=== PATIENT | male | born 1940 | race Caucasian/White ===

== ENCOUNTER 2016-06-21 13:45 | Emergency (ER) | payer OTHER ==
[~2016-06-21] VITALS: Wt 88.0 kg
[~2016-06-21 13:45] MED LIST: ASPI-664 PO; LISI-313 PO; MTF1000T PO
[2016-06-21] MEDS ORDERED: ALBUTEROL/IPRATROPIUM (NEB) 3 ML AMP HHN STA (14:36)
[2016-06-21] MEDS ORDERED: DEXAMETHASONE 10 MG/ML 1 ML INJ IM ONE (15:00)
--- NOTE | 2016-06-21 15:12 | ERD ---
ER Documentation Chief Complaint Date/Time DATE: 06/21/16 TIME: 15:06 Chief Complaint SORE THROAT AND FEELING DRY AND NOT ABLE SWALLOW. MILD SOB HPI This patient is a 75-year-old male with history of recent fistula repair 4 days ago with anesthesia who reports difficulty breathing and dry cough which began 2 days ago. The patient believes his symptoms are due to the anesthesia effects. Patient denies any history of asthma however he has used an inhaler in the past with relief of symptoms. Patient denies any fevers, chills, nausea , vomiting, diarrhea, urinary symptoms, or other symptoms. ROS All systems reviewed and are negative except as per history of present illness. Medications Home Meds Active Scripts Benzonatate* (Tessalon Perle*) 100 Mg Capsule, 100 MG PO Q8H Y for COUGH, #20 CAP Prov:LAURENT WHITNEY PA-C 06/21/16 Albuterol Sulfate* (Ventolin HFA*) 18 Gm Hfa.aer.ad, 2 PUFF INHALATION Q4H, #1 INHALER Prov:LAURENT WHITNEY PA-C 06/21/16 Azithromycin* (Zithromax*) 250 Mg Tablet, 250 MG PO .ZPACK DIRECTED, #6 TAB TAKE 500 MG (2 TABS) THE FIRST DAY THEN 250 MG (1 TAB) DAYS 2-5 Prov:LAURENT WHITNEY PA-C 06/21/16 Reported Medications Aspirin* (Aspirin* EC) 81 Mg Tablet.dr, 81 MG PO DAILY, TAB 08/29/14 Metformin* (Glucophage*) 1,000 Mg Tablet, 1000 MG PO DAILY 02/16/13 Lisinopril* (Lisinopril*) 5 Mg Tablet, 5 MG PO DAILY 11/08/12 Allergies Allergies: Coded Allergies: Penicillins (Verified Allergy, Intermediate, ITCHINESS, 08/29/14) PMhx/Soc History of Surgery: Yes (LEFT EYE CATRACT ,COUPLE COLONOSCOPY ) Anesthesia Reaction: No Hx Neurological Disorder: No Hx Respiratory Disorders: Yes (ASTHMA) Hx Cardiac Disorders: Yes (HTN) Hx Psychiatric Problems: No Hx Miscellaneous Medical Probl: No Hx Alcohol Use: Yes (OCCASIONAL) Hx Substance Use: No Hx Tobacco Use: No Smoking Status: Never smoker FmHx Noncontributory for chief complaint Physical Exam Vitals Vital Signs Date Time Temp Pulse Resp B/P Pulse Ox O2 Delivery O2 Flow Rate FiO2 06/21/16 16:25 98.2 98 Room Air 06/21/16 15:24 80 20 98 21 06/21/16 13:55 99.2 80 20 126/90 98 Physical Exam INITIAL VITAL SIGNS: Reviewed by me. GENERAL: Alert and interactive. No acute distress. HEAD: Head is normocephalic and atraumatic. EYES: EOMI. No scleral icterus. No conjunctival injection. ENT: Moist mucosa. NECK: Supple. Full range of motion. RESPIRATORY: Shallow inspiratory effort. The patient is actively coughing on exam.. Clear breath sounds bilaterally. No wheezing, rales, or rhonchi. CV: Regular rate and rhythm. Normal S1 S2. No S3 or S4. No murmurs. ABDOMEN: Soft, non-distended, non-tender. No guarding. No rebound. No masses. EXTREMITIES: No deformity. SKIN: Warm and dry. NEUROLOGIC: Alert and oriented x 4. Speech is normal. Moves all extremities equally. No motor or sensory deficits noted. Results 24 hrs Current Medications Medications (Trade) Dose Ordered Sig/Tanisha Route PRN Reason Start Time Stop Time Status Last Admin Dose Admin Albuterol/ Ipratropium (Duoneb) 3 ml ONCE STAT HHN 06/21/16 14:36 06/21/16 14:38 DC 06/21/16 15:22 Dexamethasone (Decadron) 10 mg ONCE ONCE IM 06/21/16 15:00 06/21/16 15:01 DC 06/21/16 15:00 Procedures/[facility] EMERGENCY DEPARTMENT COURSE / MEDICAL DECISION MAKING: This is a 75-year-old male who comes to the emergency room secondary to complaints of nonproductive cough and shortness of breath. On physical examination the patient's O2 saturation is 98% on room air and there are no signs of respiratory distress. On auscultation there are no wheezes, rales, or rhonchi. However, the patient is actively coughing as shallow inspiratory effort. The patient was given IM Decadron and albuterol/ipratropium breathing treatment in the department. On re-evaluation, the patient was feeling improved. Radiology: 1 view chest x-ray interpreted by radiologist: PROCEDURE: XR Chest. CLINICAL INDICATION: Cough TECHNIQUE: Chest AP portable COMPARISON: 04/29/2011 FINDINGS: There are surgical clips overlying the left chest. The mediastinal structures are unremarkable. There is calcification of the thoracic aorta (consistent with atherosclerosis). The heart is normal in size and configuration. The pulmonary vascularity is normal. The lung flynn are unremarkable. No consolidation is identified. The pleural spaces are unremarkable. There are senescent changes of the axial skeleton. IMPRESSION: Calcification of the thoracic aorta (consistent with atherosclerosis). No evidence for active cardiopulmonary disease. EKG: Interpreted by ED physician Rate/Rhythm: Normal sinus rhythm with a rate of [address] bpm. QRS, ST, T-waves: [No changes consistent w/ acute ischemia] Impression: [No evidence of ischemia or arrhythmia] The primary diagnosis is upper respiratory infection. Secondary diagnosis is cough. I have low suspicion for pulmonary embolism, bronchitis, pneumonia, pneumothorax , or other emergencies at this time. Discharge: I have discussed the lab results and diagnostic findings with the patient and answered any questions or concerns. The patient was discharged with a prescription for a Z-Ihsan, tessalon perles, and an albuterol inhaler. The patient was advised to followup with their PMD in 1-2 days and to return to the Emergency Department if there are any new or worsening symptoms. The patient understood and agreed with the diagnosis, treatment and plan. The patient is stable for discharge at this time. Departure Diagnosis: Primary Impression: Shortness of breath Additional Impression: Cough Condition: Stable Additional Instructions: No mas mejor en 2-3 santos, regresar. Mas peor en 24 horas, regresear rapidamente. Ir a doctor primario in 5-7 santos. Usar instrucciones cuando desiree medicamento. LAURENT WHITNEY PA-C Jun 21, 2016 15:12
--- NOTE | 2016-06-21 15:14 | RADRPT ---
PROCEDURE: XR Chest. CLINICAL INDICATION: Cough TECHNIQUE: Chest AP portable COMPARISON: 04/29/2011 FINDINGS: There are surgical clips overlying the left chest. The mediastinal structures are unremarkable. There is calcification of the thoracic aorta (consiste nt with atherosclerosis). The heart is normal in size and configuration. The pulmonary vascularity is normal. The lung flynn are unremarkable. No consolidation is identified. The pleural spaces are unremarkable. There are senescent changes of the axial skeleton. IMPRESSION: Calcification of the thoracic aorta (consistent with atherosclerosis). No evidence for active cardiopulmonary disease. RPTAT: HGDB .Honorio Menjivar MD, Date Time Electronically viewed and signed by .Honorio Menjivar MD, on 06/21/2016 15:13 .B/
[2016-06-21] MEDS ORDERED: AZIT250T94 PO (15:55)
[2016-06-21] MEDS ORDERED: ALBU18HF INHALATION (15:56)
[2016-06-21] MEDS ORDERED: BENZ100C70 PO (15:57)
[2016-06-21 16:25] VITALS: TEMP 98.2
== END 2016-06-21 16:26 | disposition home or self-care (01) ==
LOC: FTE 13:45
DX: R06.02 Shortness of breath (principal); I10 Essential (primary) hypertension; J45.901 Unspecified asthma with (acute) exacerbation; E11.9 Type 2 diabetes mellitus without complications; Z79.82 Long term (current) use of aspirin; Z79.84 Long term (current) use of oral hypoglycemic drugs
CPT/HCPCS: 71010; 93005; 94664; 96372; J1100; Z7502; Z7610

== ENCOUNTER 2017-01-25 08:33 | Day surgery (SDC) | payer OTHER ==
--- NOTE | 2017-01-24 14:11 | PREOPHP ---
DATE OF ADMISSION: 01/25/2017 HISTORY OF PRESENT ILLNESS: This 76-year-old patient is admitted for secondary lens implant of the left eye. The patient has a longstanding history of noninsulin dependent diabetes mellitus, associated with prior history of diabetic retinopathy and has previously undergone panretinal photocoagulation treatment in both eyes as well as having a cataract surgery in the left eye performed years ago by a different physician and then subsequently requiring a vitrectomy. Over the last 2-3 years, the patient had a dislocated lens implant in the left eye. An attempt at a recent vitrectomy performed by a retinal surgeon resulted in the lens haptic breaking intraoperatively and requiring removal. The patient currently cannot see out of the left eye as a result of being aphakic in the left eye. The patient's systemic history is positive for a 19 year history of diabetes mellitus and a more recent history of systemic hypertension. CURRENT MEDICATIONS: Includes: 1. Januvia. 2. Lisinopril. ALLERGIES: PENICILLIN. PHYSICAL EXAMINATION: The visual acuity best corrected is 20/50 in the right eye and 20/60 in the left eye. Split lamp examination reveals a nuclear sclerotic cataract in the right eye. 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 Applanation tonometry is 14 mmHg in the right eye and 12 mmHg in the left eye. Examination of the anterior chamber angle reveals the presence of some scarring and synechia in the nasal angle of the left eye. Examination of the retina is limited due to poor dilation of the pupils. DIAGNOSIS: Aphakia, left eye. PLAN: Secondary lens implant left eye. The risks and alternatives to the surgery have been discussed with the patient in light of the fact of his multiple prior eye surgeries. There is a greater risk of complications occurring. The patient understands this and agrees to proceed with surgery in hopes of recovering visual acuity in the left eye leading to greater ability to perform activities of daily living. Dictated By: Luke Solis MD /ileana/teresa /Document#: [id number]
[~2017-01-25] VITALS: Ht 152.4 cm; Wt 79.7 kg
[2017-01-25] VITALS (10 sets, daily range): BP systolic 119–161; BP diastolic 57–77; PULSE 52–69; RESP 14–54; Ht 152.4 cm; Wt 79.7 kg
[~2017-01-25 08:33] MED LIST changes: +ALBU18HF INHALATION; +AZIT250T94 PO; +BENZ100C70 PO; +CIPROFLOXACIN 0.3% 2.5 ML OPH OPER SCH; +CYCLOPENTOLATE/PHENYLEPH 2 ML OPH OPER SCH; +DICLOFENAC 0.1% 2.5 ML OPH OPER SCH; +TROPICAMIDE 1% 3ML OPH OPER SCH
[2017-01-25] MEDS ORDERED: SITA100T8 PO (09:55)
[2017-01-25] MEDS ORDERED: LISI10TA2 PO (09:56)
[2017-01-25] MEDS ORDERED: GENTAMICIN 80 MG INJ INJ ONE (11:15)
[2017-01-25] MEDS ORDERED: DEXAMETHASONE 4 MG/ML 1 ML INJ INJ ONE (11:15)
[2017-01-25] MEDS ORDERED: CARBACHOL 0.01% 1.5 ML OPH INJ IO ONE (11:15)
[2017-01-25] MEDS ORDERED: NA HYALURONATE/CHONDROITIN 0.5 ML SYG LEFT EYE ONE (11:15)
[2017-01-25] MEDS ORDERED: PROPOFOL 20 ML ONE (11:18)
[2017-01-25] MEDS ORDERED: HYDROmorphONE (0.2 MG/ML) 10ML SYG IV ONE (11:59)
[2017-01-25] MEDS ORDERED: hydrALAzine 20 MG INJ IV PRN (12:00)
[2017-01-25] MEDS ORDERED: ONDANSETRON 4 MG INJ IV PRN (12:00)
[2017-01-25] MEDS ORDERED: OXYCODONE/ACETAMINOPHEN (5/325) TAB PO PRN (12:00)
[2017-01-25] MEDS ORDERED: HYDROmorphONE (0.2 MG/ML) 10ML SYG IV PRN ×2 (12:00)
[2017-01-25] MEDS ORDERED: LABETALOL HCL 20MG INJ IV PRN (12:00)
[2017-01-25] MEDS: HYDROmorphONE (0.2 MG/ML) 10ML SYG IV PRN ×2 (12:05→12:14)
--- NOTE | 2017-01-25 12:14 | SIPON ---
Date/Time of Note Date/Time of Note DATE: 01/25/17 TIME: 12:13 Operative Report Preoperative Diagnosis aphakia os Postoperative Diagnosis same Operation/Procedure Performed secondary lens implant os Surgeon: HUSSEIN TIMMONS MD Anesthesia Type: MAC Estimated Blood Loss: none Transfusion Required: no Specimen: none Grafts/Implants anterior chamber lens implant os Complications: no HUSSEIN TIMMONS MD Jan 25, 2017 12:14
--- NOTE | 2017-01-25 12:31 | OPR ---
DATE OF OPERATION: 01/25/2017 PREOPERATIVE DIAGNOSIS: Aphakia left eye. POSTOPERATIVE DIAGNOSIS: Aphakia left eye. PROCEDURE: Secondary lens implant left eye. SURGEON: Luke Solis MD ANESTHESIOLOGIST: . OPERATIVE PROCEDURE: The patient brought to the operating room on an eye gurney positioned appropriately. Attached to electrocardiogram monitor and given oxygen via a nasal canula. After intravenous sedation was administered the patient received local anesthesia using lidocaine 4 percent given in lid block and retrobulbar injections. The patient was then prepped and draped in the usual sterile manner. A speculum was inserted between the lids of the left eye. Using a curved [place] [place] [employer] blade a 7 mm corneal limbal incision was made in a stepped fashion and then a super blade was used to enter the anterior chamber. Through this opening Miostat was instilled to keep the pupil constricted and this to maintain the anterior chamber. Following this using curved corneal scissors the incision was enlarged to its full extent. Following full opening of the incision it was noted that there was significant sclera collapse present superiorly. A lens glide was then placed across the anterior surface of the iris and then a 17.5 Diopter anterior chamber lens (Bausch and Lomb model [id number]) was inserted across into the anterior chamber and the lens glide was removed. The trailing haptic was then tucked beneath the scleral shell. Four interrupted 10-0 nylon sutures were placed and were tied. Additional Viscoat was used to maintain the anterior chamber. The lens was then rotated so that the haptics were oriented in the horizontal meridian. Two iridotomies were created using a super blade. Following this the Viscoat was evacuated from the anterior chamber. The knots were then buried on the scleral side. A 0.5 cc of gentamycin and 0.5 cc of dexamethasone were injected into the subtenon space on the conjunctival surface of the lower lid. The speculum was removed, ciprofloxacin drops placed on the surface of the eye and the eye was patched. The patient then left the operating room in satisfactory condition. Dictated By: Luke Solis MD /ileana/latesha /Document#: [id number]
[2017-01-25] MEDS ORDERED: LIDOCAINE 4% (MPF) 5 ML INJ ONE (12:32)
[2017-01-25] MEDS ORDERED: CARBACHOL 0.01% 1.5 ML OPH INJ ONE (12:32)
[2017-01-25] MEDS ORDERED: EPINEPHrine 1 MG INJ ONE (12:33)
[2017-01-25] MEDS ORDERED: DEXAMETHASONE 4 MG/ML 1 ML INJ ONE (12:33)
[2017-01-25] MEDS ORDERED: GENTAMICIN 80 MG INJ ONE (12:33)
[2017-01-25] MEDS ORDERED: NA HYALURONATE/CHONDROITIN 0.5 ML SYG ONE (12:33)
== END 2017-01-25 13:15 | disposition home or self-care (01) ==
LOC: SDS 08:33
PROVIDERS: ATTEND Ophthalmology
DX: H27.02 Aphakia, left eye (principal); I10 Essential (primary) hypertension; E11.9 Type 2 diabetes mellitus without complications
CPT/HCPCS: 65130; 82962; J0171; J1100; J1170; J1580; V2630; Z7512; Z7610

== ENCOUNTER 2017-02-03 13:12 | Emergency (ER) | payer OTHER ==
[~2017-02-03] VITALS: Ht 170.2 cm; Wt 85.0 kg
[~2017-02-03 13:12] MED LIST changes: -ALBU18HF INHALATION; -ASPI-664 PO; -AZIT250T94 PO; -BENZ100C70 PO; -CIPROFLOXACIN 0.3% 2.5 ML OPH OPER SCH; -CYCLOPENTOLATE/PHENYLEPH 2 ML OPH OPER SCH; -DICLOFENAC 0.1% 2.5 ML OPH OPER SCH; -LISI-313 PO; +LISI10TA2 PO; -MTF1000T PO; +SITA100T8 PO; -TROPICAMIDE 1% 3ML OPH OPER SCH
[2017-02-03 13:15] VITALS: Ht 170.2 cm; Wt 85.0 kg
[2017-02-03] MEDS ORDERED: HYDROCODONE/APAP (5/325) TAB PO ONE (14:30)
--- NOTE | 2017-02-03 14:48 | RADRPT ---
PROCEDURE: CT brain without IV contrast. CLINICAL INDICATION: Headache/fall. TECHNIQUE: CT examination of the brain was performed on a 64-slice multidetector scanner. The pat ient was examined without IV contrast. Sagittal and coronal reformatted images were made. The imag es were reviewed on a PACS workstation. Total radiation dose: Total CTDIvol: 42 mGy. Total DLP: 720 mGy-cm. One or more of the following dose reduction techniques were used: automated exposure control, adjustment of the mA and/or kV acco rding to patient size, or use of iterative reconstruction technique COMPARISON: None available. FINDINGS: There is mild cerebral atrophy. There is mild periventricular low density white matter changes, lik beverley microvascular ischemic changes. The heller/white matter differentiation is well preserved. There is no other abnormal intra-axial high, low density lesion, suggesting tumor, infarct, bleeding, av malformation or inflammatory mass. No subdural or epidural hematoma. There is calcified atherosclerosis of the intracranial internal c arotid arteries. The visualized paranasal sinuses and mastoid air cells are clear. The orbits are unremarkable. The calvarium is intact. No scalp abnormalities are seen. IMPRESSION: 1. Mild cerebral atrophy. 2. Mild periventricular low density white matter changes, likely microvascular ischemic changes. 3. Calcified atherosclerosis of the intracranial internal carotid arteries. RPTAT: GG .Dennis Corral MD, MD Date Time Electronically viewed and signed by .Dennis Corral MD, on 02/03/2017 14:48 .Y/
--- NOTE | 2017-02-03 15:23 | RADRPT ---
PROCEDURE: CT Orbits without intravenous contrast CLINICAL INDICATION: Head trauma. COMPARISON: None relevant listed. TECHNIQUE: Axial CT of the orbits with coronal and sagittal reformats. DOSE: The estimated administered radiation dose was CTDI vol = 29 mGy. DLP = 331 mGy-cm. One or mor e of the following dose reduction techniques were used: automated exposure control, adjustment of th e mA and/or kV according to patient size, or use of iterative reconstruction. FINDINGS: Bones: The inferior and medial espinoza of the left orbit are fractured. The fracture extends to the i nfraorbital nerve canal. The anterior and posterior lateral espinoza of the left maxillary sinus are fr actured. The fracture extends to the medial wall of the left maxillary sinus has a attaches to the m axilla. The fracture extends into the hard palate of the maxilla. Comminuted fracture of the left na basilia bone. Orbital soft tissues: Subcutaneous emphysema seen along the floor of the left orbit. Moderate female are and para soft tissue swelling on the left. Globes: Left lens replacement. No proptosis. The right orbit is normal. Extraocular muscles: Normal. No rectus muscle hematoma. Optic nerves: Normal. Lacrimal glands: Normal. Visualized brain parenchyma: No acute hemorrhage, large territorial infarction, mass, or enhancement . Visualized CSF spaces: No herniation, ventricular effacement, ventriculomegaly, or midline shift. Paranasal sinuses: Blood layers within the left maxillary sinus and a left ethmoid air cells. Multip le mucosal polyps are seen within the nasal cavity.. Mastoids and middle ears: Small left mastoid effusion. Bones: Normal. Additional comment: Mild calcified atherosclerotic arterial plaque. IMPRESSION: 1. Acute fractures involving the inferior and medial wall of the left orbit (involving the infraorbi arley nerve canal), left nasal bone, and all of the espinoza of the left maxillary sinus. 2. Moderate left periorbital and left canal or soft tissue hematoma. No post-septal intra orbital he matoma or extraocular rectus muscle hematoma. 3. Nasal polyposis. RPTAT: [facility] Physician Javad Date Time Electronically viewed and signed by Physician Javad on 02/03/2017 15:23 LG/
[2017-02-03] MEDS ORDERED: TETRACAINE 0.5% 4 ML OPH LEFT EYE ONE (16:30)
[2017-02-03] MEDS ORDERED: FLUORESCEIN STRIP LEFT EYE ONE (16:30)
--- NOTE | 2017-02-03 16:43 | ERD ---
ER Documentation Chief Complaint Date/Time DATE: 02/03/17 TIME: 16:43 Chief Complaint NOSE BLEEDING,Pt FELL ON THE BUS STEP,NO KO,LEFT EYE PAIN HPI Patient is [id number] male who presents with sudden onset, constant, moderate pain to the left side of his face after he tripped coming out of a bus and hit his face and knees on the ground. He denies loss of consciousness, denies nausea or vomiting. He denies change in his vision. He had a cataract surgery on his left eye 1 week ago which was complicated by a 10% hyphema. He states that he has had light perception only as of yesterday, and currently has light perception only. He denies neck pain. He denies lightheadedness or loss of balance as the cause of fall.Patient states that he has had a tetanus shot within the last 10 years. ROS All systems reviewed and are negative except as per history of present illness. Medications Home Meds Active Scripts Cephalexin* (Keflex*) 500 Mg Capsule, 500 MG PO QID for 7 Days, CAP Prov:ARELIS PARRISH MD 02/03/17 Reported Medications Lisinopril* (Lisinopril*) 10 Mg Tablet, 10 MG PO DAILY, #30 TAB 01/25/17 Sitagliptin* (Januvia*) 100 Mg Tablet, 100 MG PO DAILY, #30 TAB 01/25/17 Allergies Allergies: Coded Allergies: Penicillins (Verified Allergy, Intermediate, ITCHINESS, 01/25/17) PMhx/Soc Past medical history: Diabetes mellitus, hypertension, cataracts Past surgical history: Cataract surgery left eye Social history: Denies tobacco or alcohol History of Surgery: Yes (L EYE CATARACT SURGERY 2015, Secondary lens implant left eye01/25/17) Anesthesia Reaction: No Hx Neurological Disorder: No Hx Respiratory Disorders: No Hx Cardiac Disorders: Yes (HTN) Hx Psychiatric Problems: No Hx Miscellaneous Medical Probl: Yes (DM) Hx Alcohol Use: No Hx Substance Use: No Hx Tobacco Use: No Smoking Status: Never smoker FmHx Family History: diabetes, No coronary disease Physical Exam Vitals Vital Signs Date Time Temp Pulse Resp B/P Pulse Ox O2 Delivery O2 Flow Rate FiO2 02/03/17 13:15 98.6 72 18 149/69 98 Physical Exam Const: Alert, no acute distress Head: Atraumatic, Left facial abrasion and contusion Eyes: Normal Conjunctivae, . No proptosis. Extraocular movements intact without disconjugate gaze. 30% hyphema left eye. Irregular pupil. No fluorescein uptake or Betsy sign. Julian 12. ENT: Normal External Ears, Dentition intact. Nasal bridge tenderness with mild deformity. No zygomatic tenderness or mandibular tenderness. No septal hematoma. Neck: Full range of motion..~ No meningismus.No midline tenderness per Resp: Clear to auscultation bilaterally, No wheezes, no rales Cardio: Regular rate and rhythm, no murmurs Abd: Soft, non tender, non distended. Skin: No petechiae or rashes Back: No midline or flank tenderness Ext: No cyanosis, or edema. Abrasions to bilateral knees without bony tenderness or effusion. Neur: Awake and alert, Cranial nerves II through XII intact bilaterally, strength and sensation full in 4 extremities. Psych: Normal Mood and Affect Results 24 hrs Current Medications Medications (Trade) Dose Ordered Sig/Tanisha Route PRN Reason Start Time Stop Time Status Last Admin Dose Admin Acetaminophen/ Hydrocodone Bitart (Canvas (5/325)) 1 tab ONCE ONCE PO 02/03/17 14:30 02/03/17 14:31 DC 02/03/17 14:36 Tetracaine HCl (Tetracaine 0.5% Steri-Unit Elizabeth) 1 drop ONCE ONCE LEFT EYE 02/03/17 16:30 02/03/17 16:31 DC 02/03/17 16:10 Fluorescein Sodium (Vdgdw-Z-Vmhwv) 1 strip ONCE ONCE LEFT EYE 02/03/17 16:30 02/03/17 16:31 DC 02/03/17 16:10 Procedures/MDM MDM: Patient is a 76-year-old male who presents with left-sided facial trauma after a ground-level fall. The patient had a existing hyphema related to a recent cataract surgery. He has been following followed by Dr. Morris, with whom I spoke and who stated that the patient had a 10% hyphema yesterday and had light perception only. He requested an ENT consult based upon the CT evidence of orbital fracture and maxillary sinus fracture. I spoke with Dr. Sands, who stated that if the patient had no evidence of entrapment he would be able to follow the patient as an outpatient and did not need to see the patient in the emergency department I agree with this assessment. I spoke again with Dr. Morris, and he requested that the patient be transferred immediately to his clinic for further evaluation. Even that the slit-lamp in the emergency department is not working, I believe this is a reasonable plan of action. If Dr. Morris discovers any findings that warrant inpatient treatment, the patient can be transferred back to the emergency department. There is low likelihood of this being the case, as most hyphemas are managed as an outpatient and there is no evidence of globe injury or other acute ocular trauma. The patient was advised to go directly to his plastic maker office and to call to make an appointment with Dr. Sands. He was prescribed Keflex due to maxillary sinus fracture for prophylaxis. There is no evidence of significant injury to the knees or other extremities, head CT was negative, and patient was nexus negative. Departure Diagnosis: Primary Impression: Orbital fracture Encounter type: initial encounter Fracture type: closed Qualified Code: S02.80XA - Closed fracture of orbit, initial encounter Additional Impressions: Nasal fracture Encounter type: initial encounter Fracture type: closed Qualified Code: S02.2XXA - Closed fracture of nasal bone, initial encounter Maxillary sinus fracture Encounter type: initial encounter Fracture type: closed Qualified Code: S02.401A - Closed fracture of maxillary sinus, initial encounter Hyphema Laterality: left Qualified Code: H21.02 - Hyphema of left eye Condition: ARELIS Troy MD Feb 03, 2017 16:43
[2017-02-03] MEDS ORDERED: CEPH-443 PO (16:48)
--- NOTE | 2017-02-03 18:22 | PREOPHP ---
DATE OF ADMISSION: 02/03/2017 HISTORY OF PRESENT ILLNESS: This 76-year-old patient is admitted for repair of a rupture globe and removal of hyphema from the anterior chamber of the left eye. Patient previously had a secondary lens implant in his left eye done 01/25/2017. During the postoperative course, the patient was treated with antibiotics and anti-inflammatory medication. On 02/03/2017 while stepping off a bus, the patient fell and struck his face against the sidewalk injuring the area around his left eye. Patient was taken to the [facility] emergency department where he was diagnosed as having a hyphema and x-rays noted orbital floor and medial wall fracture of the left orbit. Patient was sent to my office for evaluation. PHYSICAL EXAMINATION: On examination, patient is noted to have evidence of dehiscence of the lens implant wound previously sutured 10 days ago with iris prolapse through the wound dehiscence. Patient is also noted to have a 30 percent hyphema in the anterior chamber. The anterior chamber maintains it depth and the anterior chamber lens implant remains intact in the anterior chamber. Applanation tonometry is 3 mmHg. The visual acuity in that eye is light perception only. This patient has previously undergone cataract surgery many years ago and subsequently required vitrectomy surgery. Patient's right eye is noted to be within normal limits with a corrected visual acuity of 20/50 and moderate cataract formation. 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 PLAN: Repair wound dehiscence and evacuate the hyphema from the anterior chamber of the left eye. COMMENT: A discussion has been had with the patient and family regarding the ultimate visual prognosis which currently is guarded due to the fact that this patient has undergone multiple surgeries in the past and currently has significant trauma to the left eye. The patient and the family understand this and agree to proceed with the surgery. Dictated By: Luke Solis MD /ileana/chaya /Document#: [id number]
[2017-02-04] MEDS ORDERED: FERR325C PO (10:03)
== END 2017-02-03 16:59 | disposition home or self-care (01) ==
LOC: FTE 13:12
DX: S02.80XA Fracture of other specified skull and facial bones, unspecified side, initial encounter for closed fracture (principal); S02.2XXA Fracture of nasal bones, initial encounter for closed fracture; S02.401A Maxillary fracture, unspecified side, initial encounter for closed fracture; H21.02 Hyphema, left eye; I10 Essential (primary) hypertension; E11.9 Type 2 diabetes mellitus without complications; W01.198A Fall on same level from slipping, tripping and stumbling with subsequent striking against other object, initial encounter; Y92.9 Unspecified place or not applicable; Z79.84 Long term (current) use of oral hypoglycemic drugs
CPT/HCPCS: 70450; 70480; Z7502; Z7610

== ENCOUNTER 2017-02-04 08:47 | Day surgery (SDC) | payer OTHER ==
[~2017-02-04] VITALS: Ht 182.9 cm; Wt 77.0 kg
[2017-02-04] VITALS (9 sets, daily range): BP systolic 100–133; BP diastolic 56–72; PULSE 60–70; RESP 16–19; Ht 182.9 cm; Wt 77.0 kg
[~2017-02-04 08:47] MED LIST changes: +CEPH-443 PO
[2017-02-04] MEDS ORDERED: FERR325C PO (10:03)
[2017-02-04] MEDS ORDERED: PROPOFOL 20 ML ONE (10:45)
[2017-02-04] MEDS ORDERED: LIDOCAINE 4% (MPF) 5 ML INJ ONE (11:37)
[2017-02-04] MEDS ORDERED: LIDOCAINE 1% (MPF) 10 ML INJ ONE (11:37)
[2017-02-04] MEDS ORDERED: CARBACHOL 0.01% 1.5 ML OPH INJ ONE (11:38)
[2017-02-04] MEDS ORDERED: DEXAMETHASONE 4 MG/ML 1 ML INJ ONE ×2 (11:38→12:06)
[2017-02-04] MEDS ORDERED: EPINEPHrine 1 MG INJ ONE (11:38)
[2017-02-04] MEDS ORDERED: GENTAMICIN 80 MG INJ ONE (11:38)
[2017-02-04] MEDS ORDERED: FENTAnyl 50 MCG/ML VIAL ONE (11:48)
[2017-02-04] MEDS ORDERED: CEFAZOLIN 1 GM INJ ONE (11:55)
[2017-02-04] MEDS ORDERED: NA HYALURONATE/CHONDROITIN 0.5 ML SYG ZFS SCH (12:00)
[2017-02-04] MEDS ORDERED: DEXAMETHASONE 4 MG/ML 1 ML INJ INJ ONE (12:00)
[2017-02-04] MEDS ORDERED: GENTAMICIN 80 MG INJ INJ ONE (12:00)
[2017-02-04] MEDS ORDERED: HYALURONATE/CHONDROITIN 1ML OPH INJ IO ONE (12:00)
[2017-02-04] MEDS ORDERED: ACETAMINOPHEN 1000MG/100ML IV 100 ML ONE (12:12)
[2017-02-04] MEDS ORDERED: ONDANSETRON 4 MG INJ ONE (12:31)
[2017-02-04] MEDS ORDERED: ONDANSETRON 4 MG INJ IV PRN (13:00)
[2017-02-04] MEDS ORDERED: FENTAnyl 50 MCG/ML VIAL IV PRN ×2 (13:00)
--- NOTE | 2017-02-04 13:30 | SIPON ---
Date/Time of Note Date/Time of Note DATE: 02/04/17 TIME: 13:28 Operative Report Preoperative Diagnosis Corneal wound dehiscence with iris prolapse and hyphema os Postoperative Diagnosis same Operation/Procedure Performed Repair or wound dehiscence with re-positioning of prolapsed iris and removal of hyphema os Surgeon: HUSSEIN TIMMONS MD Anesthesia Type: MAC Estimated Blood Loss: none Transfusion Required: no Specimen: none Grafts/Implants: none Complications: no HUSSEIN TIMMONS MD Feb 04, 2017 13:30
--- NOTE | 2017-02-04 14:05 | OPR ---
DATE OF OPERATION: 02/04/2017 PREOPERATIVE DIAGNOSES: 1. 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 2. Hyphema, left eye. POSTOPERATIVE DIAGNOSES: 1. 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 2. Hyphema, left eye. OPERATION PERFORMED: Repair of corneal wound dehiscence with iris prolapse and removal of hyphema from anterior chamber, left eye. SURGEON: Luke Solis MD. ANESTHESIA: Chip Hardy CRNA. INDICATION: Patient is 10 days following a secondary lens implant surgery for the left eye. Patient accidentally fell while getting off the bus and fell onto the sidewalk, striking his face and area around his left eye. He noted worsening of vision and went to the [facility] Emergency Room where he was diagnosed with a hyphema and sent for evaluation to my office. Examination revealed that multiple sutures from the initial surgery had ruptured as a result of the fall and that there was a 30 percent hyphema in the anterior chamber of the left eye. Patient is now brought to the operating room for repair of the wound dehiscence and hyphema of the left eye. OPERATIVE PROCEDURE: Patient is brought to the operating room on an eye gurney, positioned appropriately, attached to the electrocardiogram monitoring, given oxygen via nasal cannula. After some intravenous sedation is administered, patient received local anesthesia using lidocaine 4 percent given in a lid-lock and retrobulbar injection. The patient was then prepped and draped in the usual sterile manner and a speculum was inserted between the lids of the left eye. It was noted that 2 of the 4 sutures had ruptured and were open at the corneal wound with iris prolapsing through the openings within the corneal wound. Some DisCoVisc was injected through the area where the iris had prolapsed; however, the iris remained between the lips of the corneal incision. It was, therefore, decided to place multiple sutures in order to completely close the wound. The 2 open sutures were removed from the field, and a total of 5 additional sutures were placed and tied closing the corneal scleral wound completely. In the process, the iris retracted from the wound and was not visible by the end of the procedure. Prior to closing the final suture, irrigation-aspiration was performed to remove the non-clotted blood from the anterior chamber. It was noted that the anterior chamber lens implant had remained in position and had not caused any significant tearing of the base of the iris where the haptics of the lens were situated. All 10- 0 nylon suture ends were cut short and knots were either buried or retracted to the scleral side. At the end of the procedure, it was noted that the wound was completely closed and the anterior chamber structures were visible, as was the lens implant. A 0.5 cc of Ancef and a 0.5 cc of dexamethasone were injected through the lower lid adjacent to the globe. During the surgery, patient received 2 g of Ancef given intravenously. The patient then left the operating room in satisfactory condition. Dictated By: Luke Solis MD /ileana/denise /Document#: [id number]
== END 2017-02-04 15:19 | disposition home or self-care (01) ==
LOC: SDS 08:47
PROVIDERS: ATTEND Ophthalmology
DX: S05.22XA Ocular laceration and rupture with prolapse or loss of intraocular tissue, left eye, initial encounter (principal); H21.02 Hyphema, left eye; E11.9 Type 2 diabetes mellitus without complications; I10 Essential (primary) hypertension; Z88.0 Allergy status to penicillin; W19.XXXA Unspecified fall, initial encounter; Y93.9 Activity, unspecified; Y99.9 Unspecified external cause status; Y92.480 Sidewalk as the place of occurrence of the external cause
CPT/HCPCS: 65815; 66250; 82962; J0131; J0171; J0690; J1100; J1580; J2405; J3010; Z7512; Z7610

== ENCOUNTER 2017-03-21 14:00 | Emergency (ER) | payer MEDICARE, OTHER ==
[~2017-03-21] VITALS: Ht 167.6 cm; Wt 76.5 kg
[~2017-03-21 14:00] MED LIST changes: -CEPH-443 PO; +FERR325C PO
[2017-03-21 14:13] VITALS: Ht 167.6 cm; Wt 76.5 kg
--- NOTE | 2017-03-21 16:47 | RADRPT ---
PROCEDURE: Left knee radiographs. CLINICAL INDICATION: Trauma due to a fall. Left knee pain. TECHNIQUE: Three views. Weight bearing. Frontal, lateral, and patellar view. COMPARISON: No prior studies are available for comparison. FINDINGS: There is no fracture or dislocation. Vascular calcifications are present consistent with atherosclerosis. There are mild degenerative changes with small osteophytes arising from all 3 joint compartment helio ins. There is no lytic or blastic lesion. There is no radiopaque foreign body. IMPRESSION: 1. Mild degenerative change. 2. Atherosclerosis. 3. No acute abnormality. RPTAT: QQ .Karlo Sandhu MD, Date Time Electronically viewed and signed by .Karlo Sandhu MD, on 03/21/2017 16:47 .R/
--- NOTE | 2017-03-21 16:48 | RADRPT ---
PROCEDURE: Right knee radiographs. CLINICAL INDICATION: Trauma due to a fall. Right knee pain. TECHNIQUE: Three views. Weight bearing. Frontal, lateral, and oblique. COMPARISON: No prior studies are available for comparison. FINDINGS: There is no fracture or dislocation. Vascular calcifications are present consistent with atherosclerosis. There are mild degenerative changes with osteophytes arising from all 3 joint compartment margins. There is no lytic or blastic lesion. There is no radiopaque foreign body. IMPRESSION: 1. Atherosclerosis. 2. Mild degenerative change. 3. No acute abnormality of the right knee. RPTAT: QQ .Karlo Sandhu MD, Date Time Electronically viewed and signed by .Karlo Sandhu MD, on 03/21/2017 16:48 .R/
--- NOTE | 2017-03-21 16:51 | RADRPT ---
PROCEDURE: XR Right Shoulder. CLINICAL INDICATION: Trauma due to a fall. Right shoulder pain. TECHNIQUE: Three views. Frontal internal rotation, frontal external rotation, and oblique. COMPARISON: No prior study is available for comparison. FINDINGS: There is no fracture or dislocation. The soft tissues are normal. The articular surfaces are intact. There are degenerative changes of the acromioclavicular joint wit h joint space narrowing and osteophytes. There is no lytic or blastic lesion. There is no radiopaque foreign body. IMPRESSION: 1. Degenerative changes of the AC joint. 2. Otherwise unremarkable images of the right shoulder. RPTAT: QQ .Karlo Sandhu MD, MD Date Time Electronically viewed and signed by .Karlo Sandhu MD, on 03/21/2017 16:50 .R/
[2017-03-21] MEDS ORDERED: ACET325T33 PO (17:26)
--- NOTE | 2017-03-21 18:43 | ERD ---
ER Documentation Chief Complaint Chief Complaint BILATERAL KNEE PAIN S/P FALL TODAY HPI Patient is a 76-year-old male presenting to the emergency department with complaints of bilateral knee pain and right shoulder pain after injury in the shower earlier today. The patient states the floor was slippery and he fell forward hitting both of his knees and his right shoulder against the shower wall. He did not fall all the way to the ground, he did not hit his head, he did not lose consciousness, have any other injuries. Symptoms are currently intermittent and mild in severity. Patient's states he ambulates with a cane and feels bilateral lower extremity weakness at baseline. ROS All systems reviewed and are negative except as per history of present illness. Medications Home Meds Active Scripts Acetaminophen* (Tylenol*) 325 Mg Tablet, 2 TAB PO Q6 Y for PAIN AND OR ELEVATED TEMP, #20 TAB Prov:LAURENT WHITNEY PA-C 03/21/17 Reported Medications Ferrous Sulfate (Iron) 325 Mg Capsule.er, 325 MG PO DAILY, CAP 02/04/17 Lisinopril* (Lisinopril*) 10 Mg Tablet, 10 MG PO DAILY, #30 TAB 01/25/17 Sitagliptin* (Januvia*) 100 Mg Tablet, 100 MG PO DAILY, #30 TAB 01/25/17 Allergies Allergies: Coded Allergies: Penicillins (Verified Allergy, Intermediate, ITCHINESS, 02/04/17) PMhx/Soc History of Surgery: Yes (lt eye cataract sx,back mass removed, rt shoulder djd ) Anesthesia Reaction: No Hx Neurological Disorder: No Hx Respiratory Disorders: No Hx Cardiac Disorders: No Hx Psychiatric Problems: No Hx Miscellaneous Medical Probl: No Hx Alcohol Use: Yes (socially) Hx Substance Use: No Hx Tobacco Use: No Smoking Status: Never smoker Physical Exam Vitals Vital Signs Date Time Temp Pulse Resp B/P Pulse Ox O2 Delivery O2 Flow Rate FiO2 03/21/17 14:13 98.7 74 18 104/56 100 Physical Exam Const: Nontoxic, well-appearing male in no acute distress. Head: Atraumatic Eyes: Normal Conjunctiva ENT: Normal External Ears, Nose and Mouth. Neck: Full range of motion..~ No meningismus. Resp: Clear to auscultation bilaterally Cardio: Regular rate and rhythm, no murmurs Abd: Soft, non tender, non distended. Normal bowel sounds Skin: No petechiae or rashes Back: No midline or flank tenderness Ext: No cyanosis, or edema. Subjective tenderness palpation over the right shoulder and bilateral knees. There is no obvious joint effusions. No obvious dislocations or open fractures. Motion intact in bilateral upper and lower extremities. Neur: Awake and alert Psych: Normal Mood and Affect Procedures/MDM 76-year-old male presented to the emergency department with complaints of bilateral knee pain and right shoulder pain. For sickle examination was unremarkable for any significant trauma. X-ray showed no signs of fracture or other acute abnormalities. Patient was stable for discharge with prescription for Tylenol. He is to follow-up with his primary care physician in the next 1- 2 days. He is to return to the department immediately for any new or worsening symptoms. PROCEDURE: Left knee radiographs. CLINICAL INDICATION: Trauma due to a fall. Left knee pain. TECHNIQUE: Three views. Weight bearing. Frontal, lateral, and patellar view. COMPARISON: No prior studies are available for comparison. FINDINGS: There is no fracture or dislocation. Vascular calcifications are present consistent with atherosclerosis. There are mild degenerative changes with small osteophytes arising from all 3 joint compartment margins. There is no lytic or blastic lesion. There is no radiopaque foreign body. IMPRESSION: 1. Mild degenerative change. 2. Atherosclerosis. 3. No acute abnormality. RPTAT: QQ .Karlo Sandhu MD, MD Date Time Electronically viewed and signed by .Karlo Sandhu MD, MD on 03/21/2017 16:47 PROCEDURE: Right knee radiographs. CLINICAL INDICATION: Trauma due to a fall. Right knee pain. TECHNIQUE: Three views. Weight bearing. Frontal, lateral, and oblique. COMPARISON: No prior studies are available for comparison. FINDINGS: There is no fracture or dislocation. Vascular calcifications are present consistent with atherosclerosis. There are mild degenerative changes with osteophytes arising from all 3 joint compartment margins. There is no lytic or blastic lesion. There is no radiopaque foreign body. IMPRESSION: 1. Atherosclerosis. 2. Mild degenerative change. 3. No acute abnormality of the right knee. RPTAT: QQ .Karlo Sandhu MD, MD Date Time Electronically viewed and signed by .Karlo Sandhu MD, MD on 03/21/2017 16:48 PROCEDURE: XR Right Shoulder. CLINICAL INDICATION: Trauma due to a fall. Right shoulder pain. TECHNIQUE: Three views. Frontal internal rotation, frontal external rotation , and oblique. COMPARISON: No prior study is available for comparison. FINDINGS: There is no fracture or dislocation. The soft tissues are normal. The articular surfaces are intact. There are degenerative changes of the acromioclavicular joint with joint space narrowing and osteophytes. There is no lytic or blastic lesion. There is no radiopaque foreign body. IMPRESSION: 1. Degenerative changes of the AC joint. 2. Otherwise unremarkable images of the right shoulder. RPTAT: QQ .Karlo Sandhu MD, MD Date Time Electronically viewed and signed by .Karlo Sandhu MD, MD on 03/21/2017 16:50 Departure Diagnosis: Primary Impression: Fall with no significant injury Condition: Fair Patient Instructions: Fall Prevention [facility] Usted se ortega hecho un examen mdico de control que le indica que no est en kaylene condicin que requiera tratamiento urgente en el Departamento de Emergencia. Un estudio ms profundo y el tratamiento de moreno condicin pueden esperar sin ningn riesgo hasta que usted sea atendida/o en el consultorio de moreno mdico o kaylene cl nora. Es responsabilidad suya arreglar kaylene rebeca para el seguimiento del elton. MANEJO DE CONDICIONES NO URGENTES EN EL FUTURO 1) Si usted tiene un mdico de atencin primaria: Usted debera llamar a moreno mdico de atencin primaria antes de venir al departamento de emergencia. Despus de las horas de consultorio, moreno doctor o moreno asociado/a est disponible por telfono. El mdico o enfermero de marvin en el servicio telefnico puede asesorarle por екатерина medio para atender el problema, o elton contrario se puede programar kaylene rebeca. 2) Si usted no tiene un mdico de atencin primaria: Llame al mdico o clnica de referencia que aparece abajo mary las horas de consultorio para hacer kaylene rebeca para que le vean. CLINICAS: [place] [address] [phone] [facility] [phone] [facility] [phone] [facility]. [facility] [phone] [facility] [place] [id number] [phone] [facility]. [phone] [address] Additional Instructions: No mas mejor en 2-3 santos, regresar. Mas peor en 24 horas, regresear rapidamente. Ir a doctor primario en 1-2 santos. Usar instrucciones cuando desiree medicamento. LAURENT WHITNEY PA-C Mar 21, 2017 18:43
== END 2017-03-21 17:47 | disposition home or self-care (01) ==
LOC: FTE 14:00
DX: M25.561 Pain in right knee (principal); M25.562 Pain in left knee; M25.511 Pain in right shoulder; Z79.84 Long term (current) use of oral hypoglycemic drugs
CPT/HCPCS: 73562

== ENCOUNTER 2018-01-10 06:15 | Inpatient (IN) | END 2018-01-16 20:10 | DRG 472 ==

== ENCOUNTER 2018-01-16 20:17 | Inpatient (IN) | END 2018-02-07 12:52 | disposition home health service (06) | DRG 560 ==